=== PATIENT | male | born 2000 | race Caucasian/White ===

== ENCOUNTER 2021-05-04 12:06 | Emergency (ER) | payer OTHER, BC ==
[~2021-05-04] VITALS: Ht 195.6 cm; Wt 143.7 kg
[2021-05-04 14:54] LABS: HEMATOCRIT 46.4 % (39.0-50.0); HEMOGLOBIN 15.7 g/dl (14.0-18.0); IMMATURE GRANULOCYTES 0.3 % (0.0-5.0); MEAN CELL VOLUME 85.5 fL CALC (80.0-100.0); MEAN CORPUSCULAR HGB 28.9 pG CALC (26.0-32.0); MEAN CORPUSCULAR HGB CONC 33.8 g/dL CAL (32.0-36.0); NEUT# 8.44 thou/uL (1.82-7.42); RED BLOOD COUNT 5.43 mill/uL (4.70-6.10)
[2021-05-04 15:11] LABS: ALBUMIN 4.7 g/dL (3.2-5.0); ALKALINE PHOSPHATASE 77 u/l (38-126); ANION GAP 18 (6-22 (CALC)); BILIRUBIN, TOTAL 0.7 mg/dL (0.0-1.4); BUN 10 mg/dL (9-20); BUN/CREATININE RATIO 12 (12-20 (CALC)); CARBON DIOXIDE 22 mmol/l (22-30); CHLORIDE 104 mmol/l (95-108); CREATININE 0.9 mg/dL (0.7-1.3); GFR > 60 ML/MIN (>=60 (CALC)); GFR FOR AFR.AMER. > 60 ML/MIN (>=60 (CALC)); LIPASE 87 u/l (23-300); POTASSIUM 4.2 mmol/l (3.5-5.1); SGOT/AST 36 u/l (17-59); SODIUM 140 mmol/l (137-146); TOTAL PROTEIN 9.1 g/dL (6.3-8.2)
[2021-05-04] MEDS ORDERED: MOTRIN400 MG/TAB PO (15:33)
[2021-05-04 15:58] VITALS: BP 122/76
== END 2021-05-04 16:02 | disposition home or self-care (01) | DRG 563 ==
LOC: ED 12:06
PROVIDERS: Family Medicine
PROC: 2W3KX1Z Immobilization of Left Finger using Splint (ICD-10-PCS; principal; 2021-05-04)
DX: S62.611A Displaced fracture of proximal phalanx of left index finger, initial encounter for closed fracture (principal); R07.89 Other chest pain; E66.9 Obesity, unspecified; F17.200 Nicotine dependence, unspecified, uncomplicated; V43.52XA Car driver injured in collision with other type car in traffic accident, initial encounter